=== PATIENT | male | born 1940 | race Caucasian/White ===

== ENCOUNTER 2024-07-17 21:04 | Emergency (ER) | payer MEDICARE, OTHER, SELFPAY ==
[2024-07-17 21:08] VITALS: BP 99/50; PULSE 77; RESP 18; TEMP 36.6; O2SAT 96; BMI 28.4
--- NOTE | 2024-07-17 21:09 | XRR_ITS ---
PROCEDURE INFORMATION: Exam: XR Chest Exam date and time: 07/17/2024 9:13 PM Age: 83 years old Clinical indication: Other: Syncope TECHNIQUE: Imaging protocol: Radiologic exam of the chest. Views: 1 view. COMPARISON: No relevant prior studies available. FINDINGS: Tubes, catheters and devices: Dual lead AICD device is noted on the left. Lungs: Unremarkable. No consolidation. Pleural spaces: Unremarkable. No pleural effusion. No pneumothorax. Heart/Mediastinum: The heart is enlarged. There is calcified plaque involving the aorta. Bones/joints: Unremarkable. XR/XR chest 1V portable [id number] IMPRESSION: 1. Cardiomegaly.
--- NOTE | 2024-07-17 21:09 | ECG_ITS ---
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 Measurements Intervals [place] Rate: 87 P: -4 SC: 90 QRS: 245 QRSD: 19 T: 98 QT: 337 QTc: 408 Interpretive Statements Possible atrial fibrillation with demand V paced rhythm. Right bundle branch block pattern RIGHT AXIS DEVIATION [QRS AXIS > 100] LOW QRS VOLTAGE [QRS DEFLECTION < 0.5/1.0 mV IN LIMB/CHEST LEADS] Baseline artifact. Need to repeat the study No previous ECG available for comparison Electronically Signed On 07-18-2024 17:34:10 CDT by Zane Melendez M.D. [id number]
[2024-07-17 21:21] LABS: Basophils # 0.1 10^3/uL (0.0-0.1); Eosinophils # 0.2 10^3/uL (0.0-0.8); Eosinophils % 3.7 %; Hematocrit 34.3 % (37-53); Lymphocytes # 1.9 10^3/uL (0.8-4.8); Lymphocytes % 30.2 %; Mean Corpuscular HGB Conc 33.8 g/dL (30-55); Mean Corpuscular Volume 94.8 fl (82-101); Mean Platelet Volume 9.5 fL (7.4-10.4); Monocytes # 0.7 10^3/uL (0.2-0.9); Monocytes % 10.7 %; Neutrophils # 3.32 10^3/uL (1.8-7.7); Neutrophils % 54.1 %; Nucleated Red Blood Cells % 0 %; Platelet Count 216 10^3/cmm (157-399); Red Blood Count 3.62 10^6/uL (3.85-5.65); Red Cell Distribution Width 12.6 % (12.1-15.1); White Blood Count 6.15 10^3/uL (3.29-11.43)
--- NOTE | 2024-07-17 21:28 | ED_ITS ---
HPI - Syncope 2 General: Chief Complaint: Syncope Stated Complaint: syncope Time Seen by Provider: 07/17/24 21:07 History of Present Illness: Patient presents to the ER after having a syncopal episode tonight at home. He says he fell asleep and he has no complaints but EMS says his looked over and he took his head back and fell backwards and was out for about 60 seconds but then came right to notice his normal self. Related Data Home Medications Medication Instructions Recorded Confirmed atorvastatin 10 mg tablet 10 mg PO 1XD 07/17/24 07/17/24 carvedilol 25 mg tablet 25 mg PO 1XD 07/17/24 07/17/24 digoxin 125 mcg (0.125 mg) tablet 1.25 mg PO 1XD 07/17/24 07/17/24 furosemide 40 mg tablet 40 mg PO 1XD 07/17/24 07/17/24 lisinopril 5 mg tablet 25 mg PO 1XD 07/17/24 07/17/24 mexiletine 150 mg capsule 150 mg PO 2XD 07/17/24 07/17/24 spironolactone 25 mg tablet 25 mg PO 1XD 07/17/24 07/17/24 warfarin 5 mg tablet 5 mg PO 1XD 07/17/24 07/17/24 Allergies Allergy/AdvReac Type Severity Reaction Status Date / Time No Known Allergies Allergy Verified 07/17/24 21:13 Review of Systems 2 General: Reports: 10 or more systems reviewed and unremarkable except in HPI and below Physical Exam 2 Const: COMMON NORMALS: no acute distress, average body habitus, patient oriented x3, no limitations, healthy appearing, alert and well nourished HENMT: COMMON NORMALS: normocephalic, atraumatic, hearing grossly normal bilaterally, external ears normal, Normal external nose present and moist oral mucous membranes HEAD & SCALP: normocephalic and atraumatic NOSE: Normal external nose present EXTERNAL EAR: Yes external ears normal Eye: COMMON NORMALS: Equal, round and reactive pupils present, EOMs intact bilaterally, conjunctivae normal and no scleral icterus CONJUNCTIVA: Yes conjunctivae normal PUPIL: Yes Equal, round and reactive pupils present Neck/C-Spine: COMMON NORMALS: full ROM, no lymphadenopathy, supple, no meningeal signs, no JVD and Thyroid normal THYROID: Thyroid normal Chest: COMMONS NORMALS: normal inspection of the chest and normal palpation of entire chest wall Resp: COMMON NORMALS: normal respiratory effort, No retractions, No use of accessory muscles and clear to auscultation bilaterally AUSCULTATION: clear to auscultation bilaterally Cardio: COMMON NORMALS: no JVD, regular rate, regular rhythm, S1 normal heart sound present, S2 normal heart sound present, No gallops present (Cardio), No clicks present (Cardio), No murmurs present (Cardio) and No rub (Cardio) R ATE: regular rate RHYTHM: regular rhythm HEART SOUNDS: S1 normal heart sound present and S2 normal heart sound present GI: COMMON NORMALS: Normal to inspection, nondistended, normoactive bowel sounds present, Soft to palpation, non-tender, No hepatosplenomegaly present and no masses PALPATION: Yes Soft to palpation and Yes No hepatosplenomegaly present Neuro: COMMON NORMALS: patient oriented x3 SENSORIUM/ORIENTATION: Yes alert MENINGEAL SIGNS: Yes no meningeal signs Course 2 Vital Signs: Vital signs: Vital Signs Temperature 97.9 F 07/17/24 21:08 Pulse Rate 75 07/18/24 00:22 Respiratory Rate 18 07/17/24 21:34 Blood Pressure 110/45 07/18/24 00:22 Pulse Oximetry 94 07/18/24 00:13 Oxygen Delivery Me thod Room Air 07/17/24 21:08 MDM - Syncope Medical Decision Making Patient lab work with physical exam, BUN/creatinine is slightly elevated 31.7 did not have any known prior lab work, serial troponins and EKG were benign, x- ray showed cardiomegaly, patient was bolused 2 L of normal saline orthostatic Eitel signs and a walking trial was obtained which patient did not well on patient be discharged home with diagnosis syncope. Medical Records I reviewed the patient's medical records. Lab Data I reviewed the patient's lab results. 07/17/24 20:59 07/17/24 20:59 Radiology Impressions Chest X-Ray 07/17/24 21:09 IMPRESSION: 1. Cardiomegaly. Laboratory Results WBC 6.15 10^3/uL (3.29-11.43) 07/17/24 20:59 RBC 3.62 10^6/uL (3.85-5.65) L 07/17/24 20:59 Hgb 11.60 g/dL (11.27-16.99) 07/17/24 20:59 Hct 34.3 % (37-53) L 07/17/24 20:59 MCV 94.8 fl (82-101) 07/17/24 20:59 MCH 32.0 pg (27-33) 07/17/24 20:59 MCHC 33.8 g/dL (30-55) 07/17/24 20:59 RDW 12.6 % (12.1-15.1) 07/17/24 20:59 Plt Count 216 10^3/cmm (157-399) 07/17/24 20:59 MPV 9.5 fL (7.4-10.4) 07/17/24 20:59 Neut % (Auto) 54.1 % 07/17/24 20:59 Lymph % (Auto) 30.2 % 07/17/24 20:59 [place] % (Auto) 10.7 % 07/17/24 20:59 Eos % (Auto) 3.7 % 07/17/24 20:59 Baso % (Auto) 1.0 % 07/17/24 20:59 Neut # (Auto) 3.32 10^3/uL (1.8-7.7) 07/17/24 20:59 Lymph # (Auto) 1.9 10^3/uL (0.8-4.8) 07/17/24 20:59 [place] # (Auto) 0.7 10^3/uL (0.2-0.9) 07/17/24 20:59 Eos # (Auto) 0.2 10^3/uL (0.0-0.8) 07/17/24 20:59 Baso # (Auto) 0.1 10^3/uL (0.0-0.1) 07/17/24 20:59 Nucleated RBC % (auto) 0 % 07/17/24 20:59 Nucleated RBCs # 0.0 /100WBC 07/17/24 20:59 Sodium 136 mmol/L (136-145) 07/17/24 20:59 Potassium 3.6 mmol/L (3.5-5.1) 07/17/24 20:59 Chloride 96 mmol/L (98-107) L 07/17/24 20:59 Carbon Dioxide 24 mmol/L (22-29) 07/17/24 20:59 Anion Gap 19.6 (5-19) H 07/17/24 20:59 BUN 32 mg/dL (8-23) H 07/17/24 20:59 Creatinine 1.7 mg/dL (0.7-1.2) H 07/17/24 20:59 GFR Calculation Not Reportable 07/17/24 20:59 Glucose 123 mg/dL (65-115) H 07/17/24 20:59 Calculated Osmolality 290 mOsm/kg (285-295) 07/17/24 20:59 Calcium 9.5 mg/dL (8.5-10.5) 07/17/24 20:59 Total Bilirubin 0.2 mg/dL (0.15-1.2) 07/17/24 20:59 AST 14 U/L (0-40) 07/17/24 20:59 ALT 15 U/L (0-41) 07/17/24 20:59 Alkaline Phosphatase 95 U/L (40-130) 07/17/24 20:59 Troponin T Baseline 51 ng/L (0-15) H 07/17/24 20:59 Troponin T 120 Minute 48.12 ng/L (0-15) H 07/17/24 23:05 Delta Troponin T -2.88 ABS# (0-10) L 07/17/24 23:05 Total Protein 6.7 g/dL (6.6-8.7) 07/17/24 20:59 Albumin 4.5 g/dL (3.5-5.2) 07/17/24 20:59 Globulin 2.2 g/dL (1.3-4.6) 07/17/24 20:59 XR interpretation done by ED provider, pending radiology final review Discharge Plan Discharge Patient Disposition: Home Clinical Impression: Syncope Qualifiers: Syncope type: unspecified Qualified Code(s): R55 - Syncope and collapse Condition: Stable Prescriptions: No Action furosemide 40 mg tablet 40 mg PO 1XD atorvastatin 10 mg tablet 10 mg PO 1XD warfarin 5 mg tablet 5 mg PO 1XD mexiletine 150 mg capsule 150 mg PO 2XD carvedilol 25 mg tablet 25 mg PO 1XD lisinopril 5 mg tablet 25 mg PO 1XD spironolactone 25 mg tablet 25 mg PO 1XD digoxin 125 mcg (0.125 mg) tablet 1.25 mg PO 1XD Discharge Orders: Discharge ED (Routine); Ordered 07/18/24 Ordered By: Luis Chaudhari Referrals: Hayder Kinsey MD [Family Provider] - 1 week Patient Instructions: Syncope Activity Restrictions/Additional Instructions: Thank you for choosing [facility] for your healthcare needs today. Please realize that you were seen in the emergency department and that we are providing you with an emergency medical screening exam and this may not be a complete and all exclusive of all testing and/or medical workup we may need to determine your element or severity of your illness. It is very important that you follow-up as instructed with your primary care provider or specialist for the additional evaluation and to discuss your medical treatment plan. You may return to the emergency department should you have concerns or if your condition changes or worsens in any way. 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
[2024-07-17 21:34] VITALS: BP 94/47; PULSE 88; RESP 18; O2SAT 96
[2024-07-17 21:37] LABS: Troponin(5th) Baseline 51 ng/L (0-15)
[2024-07-17 21:38] LABS: Alanine Aminotransferase 15 U/L (0-41); Albumin Level 4.5 g/dL (3.5-5.2); Alkaline Phosphatase 95 U/L (40-130); Anion Gap 19.6 (5-19); Aspartate Amino Transferase 14 U/L (0-40); Blood Urea Nitrogen 32 mg/dL (8-23); Calcium 9.5 mg/dL (8.5-10.5); Carbon Dioxide 24 mmol/L (22-29); Chloride 96 mmol/L (98-107); Creatinine Clr Calc Pharmacy 37.7779; Globulin 2.2 g/dL (1.3-4.6); Glucose 123 mg/dL (65-115); Osmolality Calculated 290 mOsm/kg (285-295); Potassium 3.6 mmol/L (3.5-5.1); Sodium 136 mmol/L (136-145); Total Bilirubin 0.2 mg/dL (0.15-1.2); Total Protein 6.7 g/dL (6.6-8.7)
[2024-07-17] MEDS: sodium chloride 0.9% 1,000 ML 999 ML IV ×2 (21:42→22:34)
[2024-07-17 22:20] VITALS: BP 82/45; PULSE 80; O2SAT 94
[2024-07-17 22:26] VITALS: BP 72/45
--- NOTE | 2024-07-17 22:34 | PC.NURSE ---
This nurse spoke with Dr Chaudhari regarding trending blood pressures. Verbal order taken from Dr Chaudhari to put in bolus of fluids.
--- NOTE | 2024-07-17 23:09 | ECG_ITS ---
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 Measurements Intervals [place] Rate: 80 P: 0 NM: 0 QRS: -82 QRSD: 219 T: 92 QT: 486 QTc: 562 Interpretive Statements ELECTRONIC VENTRICULAR PACEMAKER ABNORMAL RHYTHM ECG Compared to ECG 07/17/2024 21:13:43 Atrial-paced complex(es) or rhythm no longer present Right-axis deviation no longer present Myocardial infarct finding no longer present Electronically Signed On 07-18-2024 17:41:21 CDT by Zane Melendez M.D. [id number]
[2024-07-17 23:35] LABS: Troponin 5 2HR 48.12 ng/L (0-15)
[2024-07-17 23:37] LABS: Troponin 5 2HR Delta -2.88 ABS# (0-10)
[2024-07-18 00:13] VITALS: BP 102/50; PULSE 73; O2SAT 94
[2024-07-18 00:22] VITALS: BP 105/50; BP 110/45; BP 113/50; PULSE 73; PULSE 75; PULSE 78
--- NOTE | 2024-07-18 00:42 | PC.NURSE ---
Dr Chaudhari requested nursing staff to perform fecal occult blood test. Test result positive, Dr Chaudhari notified.
[2024-07-18 00:44] VITALS: BP 117/52; PULSE 71; RESP 22; O2SAT 94
== END 2024-07-18 00:47 | disposition home or self-care (01) ==
PROVIDERS: Emergency Provider Emergency Medicine; Family Provider Family Medicine
DX: R55 Syncope and collapse (principal); Z79.01 Long term (current) use of anticoagulants
CPT/HCPCS: 71045; 80053; 84484; 85025; 93005; 99285; J7030

== ENCOUNTER 2024-11-02 04:24 | Inpatient (IN) | payer MEDICARE, BC, SELFPAY ==
[2024-11-02] VITALS (101 sets, daily range): BP systolic 76–142; BP diastolic 44–99; PULSE 66–116; RESP 9–32; TEMP 36.4–36.9; O2SAT 86–99; BMI 28.0
--- NOTE | 2024-11-02 04:30 | XRR_ITS ---
PROCEDURE INFORMATION: Exam: XR Chest Exam date and time: 11/02/2024 5:09 AM Age: 83 years old Clinical indication: Shortness of breath and wheezing; Prior surgery; Surgery date: 6+ months; Surgery type: Defibrillator TECHNIQUE: Imaging protocol: Radiologic exam of the chest. Views: 1 view. COMPARISON: CR XR chest 1V portable [id number] 07/17/2024 9:13 PM FINDINGS: Tubes, catheters and devices: Stable left chest wall pacemaker/AICD. Lungs: Bilateral lower lobe infiltrates concerning for developing pneumonia. Pleural spaces: No pleural effusion. No pneumothorax. Heart/Mediastinum: Stable cardiomegaly. Bones/joints: No acute findings. XR/XR chest 1V portable [id number] IMPRESSION: Bilateral lower lobe infiltrates concerning for developing pneumonia.
--- NOTE | 2024-11-02 04:31 | ED_ITS ---
Documented by User: Nina Brand MD 11/04/24 10:52 HPI - SOB/Dyspnea 2 General: Chief Complaint: Shortness of Breath/Dyspnea Stated Complaint: SOB Time Seen by Provider: 11/02/24 04:26 History of Present Illness: HPI Narrative: 83-year-old male with a history of conge stive heart failure with an AICD pacemaker placement, A-fib, on digoxin and warfarin, and hypertension who presents to the emergency room with shortness of breath. He said it woke him this morning he felt quite short of breath. EMS says that when he bends over his O2 sats to go down. They had him on a couple liters of oxygen. He does not have any swelling in the legs, but feels like his abdomen may be more swollen. No fevers. No cough. No altered mental status. No focal motor deficits. No nausea or vomiting. No abdominal pain. Related Data Home Medications Medication Instructions Recorded Confirmed atorvastatin 10 mg tablet 10 mg PO DAILY 07/17/24 11/02/24 digoxin 125 mcg (0.125 mg) tablet 1.25 mg PO DAILY 07/17/24 11/02/24 mexiletine 150 mg capsule 150 mg PO BID 07/17/24 11/02/24 warfarin 5 mg tablet 5 mg PO DAILY 07/17/24 11/02/24 Previous Rx's Medication Instructions Recorded furosemide 40 mg tablet 40 mg PO QAM PRN Edema #1 tab 11/03/24 Allergies Allergy/AdvReac Type Severity Reaction Status Date / Time No Known Allergies Allergy Verified 07/17/24 21:13 Review of Systems 2 Narrative: Constitutional symptoms: Negative except as documented in HPI. Skin symptoms: Negative except as documented in HPI. Eye symptoms: Negative except as documented in HPI. ENMT symptoms: Negative except as documented in HPI. Respiratory symptoms: Negative except as documented in HPI. Cardiovascular symptoms: Negative except as documented in HPI. Gastrointestinal symptoms: Negative except as documented in HPI. Genitourinary symptoms: Negative except as documented in HPI. Musculoskeletal symptoms: Negative except as documented in HPI. Neurologic symptoms: Negative except as documented in HPI. Psychiatric symptoms: Negative except as documented in HPI. Endocrine symptoms: Negative except as documented in HPI. PFSH ED 2 PFSH: Medical History (Updated 11/04/24 @ 00:00 by CARRILLO Weston) History of coronary angiogram Hyperlipidemia Ischemic cardiomyopathy Cardiac arrhythmia Surgical History (Updated 11/02/24 @ 09:25 by Alfred Hare MD) History of cardiac defibrillator placement Family History (Updated 11/02/24 @ :25 by Alfred Hare MD) Other CAD (coronary artery disease) Social History (Updated 11/02/24 @ 09:25 by Alfred Hare MD) Smoking and tobacco/nicotine status: never used tobacco/nicotine Alcohol intake: current Alcohol intake frequency: 0-2 Drinks per Day Physical Exam 2 Narrative: EXAM NARRATIVE: General: Alert, no acute distress. Skin: Warm, dry. Head: Normocephalic, atraumatic. Neck: Supple, trachea midline. Eye: Extraocular movements are intact. Ears, nose, mouth and throat: mucosa moist. Cardiovascular: Regular, Normal peripheral perfusion. Respiratory: Lungs are clear to auscultation, respirations are non-labored, breath sounds are equal, Symmetrical chest wall expansion. Gastrointestinal: Soft, Nontender, Non distended Musculoskeletal: Normal ROM, no deformity. Neurological: Alert and oriented, No focal neurological deficit observed. Psychiatric: Cooperative, appropriate mood & affect. Course 2 Vital Signs: Vital signs: Vital Signs Temperature 98.0 F 11/03/24 08:00 Pulse Rate 72 11/03/24 08:00 Respiratory Rate 15 11/03/24 08:00 Blood Pressure 117/73 11/03/24 08:00 Pulse Oximetry 96 11/03/24 11:42 Oxygen Delivery Me thod Nasal Cannula 11/03/24 08:00 Oxygen Flow Rate 2 11/02/24 10:09 MDM - SOB/Dyspnea Medical Decision Making Differential diagnosis for patient with shortness of breath includes but is not limited to and based on the above HPI, review of systems and physical exam: Pneumonia. Bronchitis. Asthma or COPD with acute exacerbation. Acute coronary syndrome / RI. Pulmonary embolism. Anxiety. Congestive heart failure. Viral infections including influenza and Covid-19. Atrial fibrillation. Anxiety. Pleural effusion. Pneumothorax. EKG: Time 435. Rate 80. Normal sinus rhythm, No ST-T changes, no ectopy, paced rhythm, this was reviewed and interpreted by myself the emergency room physician at 4:40 AM Patient care transitioned to Dr. Li at shift change. Lab Data 11/03/24 03:41 11/03/24 03:41 Labs/Radiology: Radiology Impressions Chest X-Ray 11/02/24 04:30 IMPRESSION: Bilateral lower lobe infiltrates concerning for developing pneumonia. Chest CT 11/02/24 09:29 IMPRESSION: 1. Small RIGHT greater than LEFT pleural effusions with compressive atelectasis in the lung bases. 2. Interstitial edema in the lower lobes bilaterally 3. Cardiomegaly. 4. Biconcave compression fracture T3 with diffuse sclerosis loss approximately 30% vertebral body height. This is probably chronic but recommend correlation for upper back pain. 5. Cholelithiasis. Laboratory Results WBC 10.55 10^3/uL (3.29-11.43) 11/02/24 04:18 RBC 4.50 10^6/uL (3.85-5.65) 11/02/24 04:18 Hgb 13.70 g/dL (11.27-16.99) 11/02/24 04:18 Hct 41.7 % (37-53) 11/02/24 04:18 MCV 92.7 fl (82-101) 11/02/24 04:18 MCH 30.4 pg (27-33) 11/02/24 04:18 MCHC 32.9 g/dL (30-55) 11/02/24 04:18 RDW 13.7 % (12.1-15.1) 11/02/24 04:18 Plt Count 222 10^3/cmm (157-399) 11/02/24 04:18 MPV 10.7 fL (7.4-10.4) H 11/02/24 04:18 Neut % (Auto) 73.6 % 11/02/24 04:18 Lymph % (Auto) 15.5 % 11/02/24 04:18 [place] % (Auto) 8.6 % 11/02/24 04:18 Eos % (Auto) 1.2 % 11/02/24 04:18 Baso % (Auto) 0.8 % 11/02/24 04:18 Neut # (Auto) 7.76 10^3/uL (1.8-7.7) H 11/02/24 04:18 Lymph # (Auto) 1.6 10^3/uL (0.8-4.8) 11/02/24 04:18 [place] # (Auto) 0.9 10^3/uL (0.2-0.9) 11/02/24 04:18 Eos # (Auto) 0.1 10^3/uL (0.0-0.8) 11/02/24 04:18 Baso # (Auto) 0.1 10^3/uL (0.0-0.1) 11/02/24 04:18 Nucleated RBC % (auto) 0 % 11/02/24 04:18 Nucleated RBCs # 0.0 /100WBC 11/02/24 04:18 PT 27.50 SECONDS (12.1-14.9) H 11/02/24 04:18 INR 2.45 (0.8-1.2) H 11/02/24 04:18 APTT 40.7 SECONDS (23.9-36.7) H 11/02/24 04:18 Sodium 138 mmol/L (136-145) 11/02/24 04:18 Potassium 3.8 mmol/L (3.5-5.1) 11/02/24 04:18 Chloride 96 mmol/L (98-107) L 11/02/24 04:18 Carbon Dioxide 24 mmol/L (22-29) 11/02/24 04:18 Anion Gap 21.8 (5-19) H 11/02/24 04:18 BUN 24 mg/dL (8-23) H 11/02/24 04:18 Creatinine 1.6 mg/dL (0.7-1.2) H 11/02/24 04:18 GFR Calculation Not Reportable 11/02/24 04:18 Glucose 152 mg/dL (65-115) H 11/02/24 04:18 Calculated Osmolality 293 mOsm/kg (285-295) 11/02/24 04:18 Lactic Acid 2.7 mmol/L (0.5-2.2) H 11/02/24 04:18 Lactic Acid (Sepsis) 1.9 mmol/L (0.5-2.2) 11/02/24 06:57 Calcium 9.2 mg/dL (8.5-10.5) 11/02/24 04:18 Magnesium 2.1 mg/dL (1.7-2.3) 11/02/24 04:18 Total Bilirubin 0.9 mg/dL (0.15-1.2) 11/02/24 04:18 AST 14 U/L (0-40) 11/02/24 04:18 ALT 19 U/L (0-41) 11/02/24 04:18 Alkaline Phosphatase 110 U/L (40-130) 11/02/24 04:18 Troponin T Baseline 38 ng/L (0-15) H 11/02/24 04:18 Troponin T 120 Minute 36.90 ng/L (0-15) H 11/02/24 06:57 Delta Troponin T -1.10 ABS# (0-10) L 11/02/24 06:57 C-Reactive Protein 40.1 mg/L (0.0-4.9) H 11/02/24 06:57 NT-Pro-B Natriuret Pep 3720 pg/mL (0-450) H 11/02/24 04:18 Total Protein 6.6 g/dL (6.6-8.7) 11/02/24 04:18 Albumin 4.4 g/dL (3.5-5.2) 11/02/24 04:18 Globulin 2.2 g/dL (1.3-4.6) 11/02/24 04:18 Procalcitonin 0.07 ng/mL (0-0.5) 11/02/24 06:57 TSH 2.68 uIU/mL (0.27-4.20) 11/02/24 04:18 Urine Color Yellow (Yellow) 11/02/24 09:02 Urine Appearance Clear (CLEAR) 11/02/24 09:02 Urine pH 5.5 (5-7) 11/02/24 09:02 Ur Specific [place] 1.014 (1.005-1.030) 11/02/24 09:02 Urine Protein Negative (Negative) 11/02/24 09:02 Urine Glucose (UA) Negative (Normal) 11/02/24 09:02 Urine Ketones Negative (Negative) 11/02/24 09:02 Urine Blood Negative (Negative) 11/02/24 09:02 Urine Nitrate Negative (Negative) 11/02/24 09:02 Urine Bilirubin Negative (Negative) 11/02/24 09:02 Urine Urobilinogen 1.0 mg/dL (Negative) 11/02/24 09:02 Ur Leukocyte Esterase Negative (Negative) 11/02/24 09:02 Urine RBC 0-2 /hpf (0-2) 11/02/24 09:02 Urine WBC 0-5 /hpf (0-5) 11/02/24 09:02 Ur Squamous Epith Cells 0-5 /hpf (0-5) 11/02/24 09:02 Amorphous Sediment Not Reportable 11/02/24 09:02 Urine Bacteria None seen /hpf (NONE) 11/02/24 09:02 Hyaline Casts 9.07 /lpf 11/02/24 09:02 Digoxin 0.9 ng/mL (0.6-1.2) 11/02/24 06:52 Coronavirus (PCR) Negative (Negative) 11/02/24 04:18 Influenza A (PCR) Negative (Negative) 11/02/24 04:18 Influenza Type B (PCR) Negative (Negative) 11/02/24 04:18 RSV (PCR) Negative (Negative) 11/02/24 04:18 Discharge Plan Discharge Patient Disposition: Admitted As Inpatient Admit Provider: Alfred Hare Clinical Impression: Hypotension, Chronic kidney disease, Ischemic cardiomyopathy, Community acquired pneumonia Condition: Stable Discharge Diet: Cardiac Discharge Activity: Limit activity as instructed Sign Out Sign Out Data: Patient Sign Out occurred on 11/02/24 at 05:53. Patient's care was discussed, and care was transferred from Nina Brand MD to Ran Li DO. Coding Level of Care Code ED Lead Oracle Developer for Chg Fwd Documented by User: Ran Li DO 11/02/24 12:51 HPI - SOB/Dyspnea 2 General: Chief Complaint: Shortness of Breath/Dyspnea Stated Complaint: SOB Time Seen by Provider: 11/02/24 04:26 Related Data Home Medications Medication Instructions Recorded Confirmed atorvastatin 10 mg tablet 10 mg PO DAILY 07/17/24 11/02/24 digoxin 125 mcg (0.125 mg) tablet 1.25 mg PO DAILY 07/17/24 11/02/24 mexiletine 150 mg capsule 150 mg PO BID 07/17/24 11/02/24 warfarin 5 mg tablet 5 mg PO DAILY 07/17/24 11/02/24 Previous Rx's Medication Instructions Recorded furosemide 40 mg tablet 40 mg PO QAM PRN Edema #1 tab 11/03/24 Allergies Allergy/AdvReac Type Severity Reaction Status Date / Time No Known Allergies Allergy Verified 07/17/24 21:13 [facility] ED 2 PFS: Medical History (Updated 11/04/24 @ 00:00 by CARRILLO Weston) History of coronary angiogram Hyperlipidemia Ischemic cardiomyopathy Cardiac arrhythmia Surgical History (Updated 11/02/24 @ 09:25 by Alfred Hare MD) History of cardiac defibrillator placement Family History (Updated 11/02/24 @ :25 by Alfred Hare MD) Other CAD (coronary artery disease) Social History (Updated 11/02/24 @ :25 by Alfred Hare MD) Smoking and tobacco/nicotine status: never used tobacco/nicotine Alcohol intake: current Alcohol intake frequency: 0-2 Drinks per Day Course 2 Vital Signs: Vital signs: Vital Signs Temperature 98.0 F 11/03/24 08:00 Pulse Rate 72 11/03/24 08:00 Respiratory Rate 15 11/03/24 08:00 Blood Pressure 117/73 11/03/24 08:00 Pulse Oximetry 96 11/03/24 11:42 Oxygen Delivery Me thod Nasal Cannula 11/03/24 08:00 Oxygen Flow Rate 2 11/02/24 10:09 MDM - SOB/Dyspnea Medical Decision Making Differential diagnosis for patient with shortness of breath includes but is not limited to and based on the above HPI, review of systems and physical exam: Pneumonia. Bronchitis. Asthma or COPD with acute exacerbation. Acute coronary syndrome / RI. Pulmonary embolism. Anxiety. Congestive heart failure. Viral infections including influenza and Covid-19. Atrial fibrillation. Anxiety. Pleural effusion. Pneumothorax. EKG: Time 435. Rate 80. Normal sinus rhythm, No ST-T changes, no ectopy, paced rhythm, this was reviewed and interpreted by myself the emergency room physician at 4:40 AM Patient care transitioned to Dr. Li at shift change. Care assumed at change of shift. Patient is hypotensive. Patient has known history of cardiomyopathy has an ICD in place. He was given IV fluids for hypotension very small amount due to concern for heart failure. He also has some underlying pneumonia. Reviewed with hospitalist. Will admit IV antibiotics initiated. Will get old records from [place] where he usually gets his care. Dig level 0.9. Medical Records I reviewed the patient's medical records. Old records requested from [place] Lab Data I reviewed the patient's lab results. 11/03/24 03:41 11/03/24 03:41 Labs/Radiology: Radiology Impressions Chest X-Ray 11/02/24 04:30 IMPRESSION: Bilateral lower lobe infiltrates concerning for developing pneumonia. Chest CT 11/02/24 09:29 IMPRESSION: 1. Small RIGHT greater than LEFT pleural effusions with compressive atelectasis in the lung bases. 2. Interstitial edema in the lower lobes bilaterally 3. Cardiomegaly. 4. Biconcave compression fracture T3 with diffuse sclerosis loss approximately 30% vertebral body height. This is probably chronic but recommend correlation for upper back pain. 5. Cholelithiasis. Laboratory Results WBC 10.55 10^3/uL (3.29-11.43) 11/02/24 04:18 RBC 4.50 10^6/uL (3.85-5.65) 11/02/24 04:18 Hgb 13.70 g/dL (11.27-16.99) 11/02/24 04:18 Hct 41.7 % (37-53) 11/02/24 04:18 MCV 92.7 fl (82-101) 11/02/24 04:18 MCH 30.4 pg (27-33) 11/02/24 04:18 MCHC 32.9 g/dL (30-55) 11/02/24 04:18 RDW 13.7 % (12.1-15.1) 11/02/24 04:18 Plt Count 222 10^3/cmm (157-399) 11/02/24 04:18 MPV 10.7 fL (7.4-10.4) H 11/02/24 04:18 Neut % (Auto) 73.6 % 11/02/24 04:18 Lymph % (Auto) 15.5 % 11/02/24 04:18 [place] % (Auto) 8.6 % 11/02/24 04:18 Eos % (Auto) 1.2 % 11/02/24 04:18 Baso % (Auto) 0.8 % 11/02/24 04:18 Neut # (Auto) 7.76 10^3/uL (1.8-7.7) H 11/02/24 04:18 Lymph # (Auto) 1.6 10^3/uL (0.8-4.8) 11/02/24 04:18 [place] # (Auto) 0.9 10^3/uL (0.2-0.9) 11/02/24 04:18 Eos # (Auto) 0.1 10^3/uL (0.0-0.8) 11/02/24 04:18 Baso # (Auto) 0.1 10^3/uL (0.0-0.1) 11/02/24 04:18 Nucleated RBC % (auto) 0 % 11/02/24 04:18 Nucleated RBCs # 0.0 /100WBC 11/02/24 04:18 PT 27.50 SECONDS (12.1-14.9) H 11/02/24 04:18 INR 2.45 (0.8-1.2) H 11/02/24 04:18 APTT 40.7 SECONDS (23.9-36.7) H 11/02/24 04:18 Sodium 138 mmol/L (136-145) 11/02/24 04:18 Potassium 3.8 mmol/L (3.5-5.1) 11/02/24 04:18 Chloride 96 mmol/L (98-107) L 11/02/24 04:18 Carbon Dioxide 24 mmol/L (22-29) 11/02/24 04:18 Anion Gap 21.8 (5-19) H 11/02/24 04:18 BUN 24 mg/dL (8-23) H 11/02/24 04:18 Creatinine 1.6 mg/dL (0.7-1.2) H 11/02/24 04:18 GFR Calculation Not Reportable 11/02/24 04:18 Glucose 152 mg/dL (65-115) H 11/02/24 04:18 Calculated Osmolality 293 mOsm/kg (285-295) 11/02/24 04:18 Lactic Acid 2.7 mmol/L (0.5-2.2) H 11/02/24 04:18 Lactic Acid (Sepsis) 1.9 mmol/L (0.5-2.2) 11/02/24 06:57 Calcium 9.2 mg/dL (8.5-10.5) 11/02/24 04:18 Magnesium 2.1 mg/dL (1.7-2.3) 11/02/24 04:18 Total Bilirubin 0.9 mg/dL (0.15-1.2) 11/02/24 04:18 AST 14 U/L (0-40) 11/02/24 04:18 ALT 19 U/L (0-41) 11/02/24 04:18 Alkaline Phosphatase 110 U/L (40-130) 11/02/24 04:18 Troponin T Baseline 38 ng/L (0-15) H 11/02/24 04:18 Troponin T 120 Minute 36.90 ng/L (0-15) H 11/02/24 06:57 Delta Troponin T -1.10 ABS# (0-10) L 11/02/24 06:57 C-Reactive Protein 40.1 mg/L (0.0-4.9) H 11/02/24 06:57 NT-Pro-B Natriuret Pep 3720 pg/mL (0-450) H 11/02/24 04:18 Total Protein 6.6 g/dL (6.6-8.7) 11/02/24 04:18 Albumin 4.4 g/dL (3.5-5.2) 11/02/24 04:18 Globulin 2.2 g/dL (1.3-4.6) 11/02/24 04:18 Procalcitonin 0.07 ng/mL (0-0.5) 11/02/24 06:57 TSH 2.68 uIU/mL (0.27-4.20) 11/02/24 04:18 Urine Color Yellow (Yellow) 11/02/24 09:02 Urine Appearance Clear (CLEAR) 11/02/24 09:02 Urine pH 5.5 (5-7) 11/02/24 09:02 Ur Specific [place] 1.014 (1.005-1.030) 11/02/24 09:02 Urine Protein Negative (Negative) 11/02/24 09:02 Urine Glucose (UA) Negative (Normal) 11/02/24 09:02 Urine Ketones Negative (Negative) 11/02/24 09:02 Urine Blood Negative (Negative) 11/02/24 09:02 Urine Nitrate Negative (Negative) 11/02/24 09:02 Urine Bilirubin Negative (Negative) 11/02/24 09:02 Urine Urobilinogen 1.0 mg/dL (Negative) 11/02/24 09:02 Ur Leukocyte Esterase Negative (Negative) 11/02/24 09:02 Urine RBC 0-2 /hpf (0-2) 11/02/24 09:02 Urine WBC 0-5 /hpf (0-5) 11/02/24 09:02 Ur Squamous Epith Cells 0-5 /hpf (0-5) 11/02/24 09:02 Amorphous Sediment Not Reportable 11/02/24 09:02 Urine Bacteria None seen /hpf (NONE) 11/02/24 09:02 Hyaline Casts 9.07 /lpf 11/02/24 09:02 Digoxin 0.9 ng/mL (0.6-1.2) 11/02/24 06:52 Coronavirus (PCR) Negative (Negative) 11/02/24 04:18 Influenza A (PCR) Negative (Negative) 11/02/24 04:18 Influenza Type B (PCR) Negative (Negative) 11/02/24 04:18 RSV (PCR) Negative (Negative) 11/02/24 04:18 All radiology interpretation(s) finalized by discharge Discharge Plan Discharge Patient Disposition: Admitted As Inpatient Admit Provider: Alfred Hare Clinical Impression: Hypotension, Chronic kidney disease, Ischemic cardiomyopathy, Community acquired pneumonia Condition: Stable Discharge Diet: Cardiac Discharge Activity: Limit activity as instructed Sign Out Sign Out Data: Patient Sign Out occurred on 11/02/24 at 05:53. Patient's care was discussed, and care was transferred from Nina Brand MD to Ran Li DO. Coding Level of Care Code ED Lead Oracle Developer for Idalia Pabon
--- NOTE | 2024-11-02 04:31 | ECG_ITS ---
[facility] Test Date: 2024-11-02 Pat Name: Al Sarmiento Department: Room: Gender: Male Ekg/Ecg Technician: : 1940 Requested By: Nina Gibbons Order Number: [id number] Alyssa MD: Zane Melendez M.D. Measurements Intervals [place] Rate: 80 P: 30 MD: 82 QRS: 126 QRSD: 97 T: -41 QT: 395 QTc: 456 Interpretive Statements ELECTRONIC ventricular PACEMAKER 100% v paced rhythm Further interpretation is not possible Electronically Signed On 11-02-2024 19:51:12 [employer] H[employer]RIC[employer]UNTER by Zane Melendez M.D. [id number]
[2024-11-02 04:50] LABS: Basophils # 0.1 10^3/uL (0.0-0.1); Basophils % 0.8 %; Eosinophils # 0.1 10^3/uL (0.0-0.8); Eosinophils % 1.2 %; Hematocrit 41.7 % (37-53); Lymphocytes # 1.6 10^3/uL (0.8-4.8); Lymphocytes % 15.5 %; Mean Corpuscular HGB Conc 32.9 g/dL (30-55); Mean Corpuscular Hemoglobin 30.4 pg (27-33); Mean Corpuscular Volume 92.7 fl (82-101); Mean Platelet Volume 10.7 fL (7.4-10.4); Monocytes # 0.9 10^3/uL (0.2-0.9); Monocytes % 8.6 %; Neutrophils # 7.76 10^3/uL (1.8-7.7); Neutrophils % 73.6 %; Nucleated Red Blood Cells % 0 %; Platelet Count 222 10^3/cmm (157-399); Red Cell Distribution Width 13.7 % (12.1-15.1); White Blood Count 10.55 10^3/uL (3.29-11.43)
[2024-11-02 05:04] LABS: INR 2.45 (0.8-1.2)
[2024-11-02 05:05] LABS: Partial Thromboplastin Time 40.7 SECONDS (23.9-36.7)
[2024-11-02 05:10] LABS: Troponin(5th) Baseline 38 ng/L (0-15)
[2024-11-02 05:11] LABS: Lactic Sepsis W/Reflex 2.7 mmol/L (0.5-2.2)
[2024-11-02 05:16] LABS: Alanine Aminotransferase 19 U/L (0-41); Albumin Level 4.4 g/dL (3.5-5.2); Alkaline Phosphatase 110 U/L (40-130); Anion Gap 21.8 (5-19); Aspartate Amino Transferase 14 U/L (0-40); Blood Urea Nitrogen 24 mg/dL (8-23); Calcium 9.2 mg/dL (8.5-10.5); Carbon Dioxide 24 mmol/L (22-29); Chloride 96 mmol/L (98-107); Globulin 2.2 g/dL (1.3-4.6); Glucose 152 mg/dL (65-115); Osmolality Calculated 293 mOsm/kg (285-295); Potassium 3.8 mmol/L (3.5-5.1); Sodium 138 mmol/L (136-145); Total Bilirubin 0.9 mg/dL (0.15-1.2); Total Protein 6.6 g/dL (6.6-8.7)
[2024-11-02 05:22] LABS: NT Pro B Type Natriuretic Pept 3720 pg/mL (0-450)
[2024-11-02 06:36] LABS: Reflex Lactate Order REFLEX LACTIC ORDERD
--- NOTE | 2024-11-02 07:20 | ECG_ITS ---
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 Measurements Intervals [place] Rate: 80 P: 60 [place]: 87 QRS: 258 QRSD: 78 T: 109 QT: 384 QTc: 444 Interpretive Statements ELECTRONIC Ventricular PACEMAKER LOW QRS VOLTAGE [QRS DEFLECTION < 0.5/1.0 mV IN LIMB/CHEST LEADS] ANTEROLATERAL MYOCARDIAL INFARCTION , PROBABLY RECENT [40+ ms Q WAVE IN I/aVL/V3-V6] MARKED ST ELEVATION, CONSIDER INFERIOR INJURY [MARKED ST ELEVATION W/O NORMALLY INFLECTED T-WAVE IN II/aVF] ACUTE NV Compared to ECG 11/02/2024 04:35:08 Right-axis deviation no longer present Myocardial infarct finding still present ST (T wave) deviation still present Electronically Signed On 11-02-2024 19:55:20 AQUATIC INSTRUCTOR by Zane Melendez M.D. [id number]
[2024-11-02 07:27] LABS: C Reactive Protein 40.1 mg/L (0.0-4.9)
[2024-11-02 07:29] LABS: Covid PCR NEGATIVE (Negative); Influenza A NEGATIVE (Negative); Influenza B NEGATIVE (Negative); Respiratory Syncytial Virus Ce NEGATIVE (Negative)
[2024-11-02 07:32] LABS: Lactic Acid level (Lactate) 1.9 mmol/L (0.5-2.2)
[2024-11-02] MEDS: piperacillin-tazobactam 3.375 GM in sodium chloride 0.9% (plus) 50 ML IV (07:32)
[2024-11-02 07:34] LABS: Procalcitonin 0.07 ng/mL (0-0.5)
--- NOTE | 2024-11-02 07:40 | USCV_ITS ---
Al Sarmiento Age: 83 Gender: M : 1940 Exam Date: 11/02/2024 09:04 Ordering Phys: Ran Li DO Technologist: Slade Mann [place]am [place] [facility] [place]ication: chf BP: 94 / 53 HR: 85 Rhythm: Sinus Technical Quality: Adequate MEASUREMENTS (Male / Female) Normal Values 2D ECHO LV Diastolic Diameter PLAX 5.6 cm 4.2 - 5.9 / 3.9 - 5.3 cm IVS Diastolic Thickness 1.5 cm 0.6 - 1.0 / 0.6 - 0.9 cm IVS Systolic Thickness 1.6 cm LVPW Diastolic Thickness 1.6 cm 0.6 - 1.0 / 0.6 - 0.9 cm LVPW Systolic Thickness 2.6 cm LVOT Diameter 2.1 cm LV Ejection Fraction 2D Teich 44.2 % LV Ejection Fraction MOD 4C 60.2 % LV Ejection Fraction MOD 2C 32.8 % LV Ejection Fraction 2C AL 34.9 % LA Diameter 5.1 cm RA Systolic Volume 4C AL 88.9 ml RA Systolic Volume 4C MOD 90.8 ml LA Sys Volume AL 123.8 cm cubed LA Sys Volume Index AL 59.7 cm cubed/m squared Aorta at Sinotubular Diameter 2.0 cm IVC Diameter 2.0 cm M-MODE LA Ao Ratio MM 2.1 AV Cusp Separation MM 1.4 cm DOPPLER AV Peak Velocity 143.0 cm/s LVOT Peak Velocity 73.0 cm/s AV Area Cont Eq vti 1.9 cm squared AV Area Cont Eq pk 1.7 cm squared MV Peak Velocity 360.3 cm/s MV Area PHT 5.5 cm squared Mitral E to A Ratio 2.8 TV Peak Velocity 172.9 cm/s TR Peak Velocity 230.0 cm/s TR Peak Gradient 21.2 mmHg TR Mean Velocity 225.0 cm/s TR Mean Gradient 23.0 mmHg TR Velocity Time Integral 76.9 cm PV Peak Velocity 78.0 cm/s RV Ejection Time 0.2 s FINDINGS Left Ventricle Normal LV size with y diminished ejection fraction of around 45%. 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 Right Ventricle The right ventricle is normal in size and function. Right Atrium Mildly increased right atrial size. Left Atrium Moderately increased left atrial size. Mitral Valve Moderate-severe mitral valve regurgitation. Aortic Valve Thickened aortic valve. Tricuspid Valve Trace tricuspid valve regurgitation. Estimated pulmonary artery peak systolic pressure 26 mmHg Pulmonic Valve Pulmonic valve not well visualized. Pericardium Normal pericardium without effusion. Aorta Normal ascending aorta dimension. IVC Normal inferior vena cava. CONCLUSIONS Normal LV size with y diminished ejection fraction of around 45%. Moderately increased left atrial size. Moderate-severe mitral valve regurgitation. Mildly increased right atrial size. Trace tricuspid valve regurgitation. Estimated pulmonary artery peak systolic pressure 26 mmHg Thickened aortic valve. 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 There is no pericardial effusion. There are no intracardiac masses. No similar previous studies are available for comparison Dr Zane Melendez MD [facility] (Electronically Signed) Final Date: 02 November 2024 12:00 S
[2024-11-02 08:04] LABS: Digoxin 0.9 ng/mL (0.6-1.2)
[2024-11-02] MEDS: sodium chloride 0.9% 500 ML 999 ML IV (08:07)
[2024-11-02] MEDS: norepinephrine 4 MG/250 ML BAG 30 MG IV (08:10)
--- NOTE | 2024-11-02 09:22 | PM.HP ---
Providers/Chief Complaint Admitting Physician: Alfred Hare MD Primary Care Provider: Kathrin Zuniga MD Chief Complaint: SOB History of Present Illness Al Sarmiento is a 83 year old male who usually receives his cardiac care at [facility] who presents with low oxygen level. He reports in the middle of the night, around 3 AM he woke up very short of breath. He noticed his oxygen level was 82%. He did not recently had any cough, fever, or chest pain. He reports since then he has felt intermittent shortness of breath that is been significant and. He believes he had an angiogram 6 months ago, at [facility] and no intervention was performed. He has a history of cardiomyopathy, according to documentation may be ischemic, with an EF of 40% and moderate mitral regurgitation in November 2023 by echo. Currently he denies any chest pain, and feels excellent. Blood pressure was significantly low in the ER and he was started on norepinephrine, of which he is on 10 mcg. Systolic there was in the mid 70s. There has been no change in his medications recently. In the emergency department he received some IV fluid, some Zosyn empirically, and some norepinephrine. Review of Systems General: Reports: 10 or more systems reviewed and unremarkable except in HPI and below Card: Denies: chest pain Resp: Reports: dyspnea GI: Denies: hematochezia or melena Medications/Allergies Home Medications Medication Instructions Recorded Confirmed Last Taken Type atorvastatin 10 mg tablet 10 mg PO DAILY 07/17/24 11/02/24 11/01/24 History digoxin 125 mcg (0.125 mg) tablet 1.25 mg PO DAILY 07/17/24 11/02/24 11/01/24 History furosemide 40 mg tablet 40 mg PO QAM 07/17/24 11/02/24 11/02/24 History lisinopril 5 mg tablet 5 mg PO DAILY 07/17/24 11/02/24 11/01/24 History mexiletine 150 mg capsule 150 mg PO BID 07/17/24 11/02/24 11/01/24 History spironolactone 25 mg tablet 25 mg PO DAILY 07/17/24 11/02/24 11/01/24 History warfarin 5 mg tablet 5 mg PO DAILY 07/17/24 11/02/24 11/01/24 History carvedilol 12.5 mg tablet 12.5 mg PO BID 11/02/24 11/02/24 11/01/24 History Allergies Allergy/AdvReac Type Severity Reaction Status Date / Time No Known Allergies Allergy Verified 07/17/24 21:13 PFSH Acute PFSH: Medical History (Updated 11/02/24 @ 09:31 by Alfred Hare MD) History of coronary angiogram Hyperlipidemia Ischemic cardiomyopathy Cardiac arrhythmia Surgical History (Updated 11/02/24 @ 09:25 by Alfred Hare MD) History of cardiac defibrillator placement Family History (Updated 11/02/24 @ 09:25 by Alfred Hare MD) Other CAD (coronary artery disease) Social History (Updated 11/02/24 @ 09:25 by Alfred Hare MD) Smoking and tobacco/nicotine status: never used tobacco/nicotine Alcohol intake: current Alcohol intake frequency: 0-2 Drinks per Day Vitals/I&O/Wt Last Vital Signs Temp 98 F 11/02/24 04:45 Pulse 93 11/02/24 07:45 Resp 22 H 11/02/24 06:24 BP 94/53 11/02/24 07:45 Pulse Ox 93 11/02/24 07:45 O2 Del Method Room Air 11/02/24 07:45 O2 Flow Rate 1 11/02/24 05:30 11/01/24 11/02/24 11/02/24 22:59 06:59 14:59 Intake Total 0 / 0 557.5 / 557.5 Balance 0 / 0 557.5 / 557.5 Weight last 48 hrs Weight 85.729 kg Physical Exam Narrative: General Exam is a white male, no distress, reporting he feels better currently HEENT: Atraumatic normocephalic. Oropharynx is clear Neck is supple no lymphadenopathy thyromegaly Cardiovascular regular in rhythm with a 3/6 systolic murmur Lungs clear but with diminished breath sounds at the bases Abdomen is soft nontender. Positive bowel sounds exam is deferred Extremities no cyanosis clubbing edema, cap refill brisk Skin no rash Neuro no obvious focal deficits Data 11/02/24 04:18 11/02/24 04:18 Other Labs: INR is 2.45 LFTs are normal Lactic acid 2.7 and repeat 1.9 Troponin 38, repeat 37 CRP 40 BNP 3720 Procalcitonin 0.07 Digoxin level 0.9 Coronavirus, influenza, RSV negative Chest x-ray demonstrates some bilateral lower lobe infiltrates. Cardiac device is noted. On my review I am concerned it appears he has a little bit of heart failure. Cannot completely rule out layering effusions. Blood cultures were obtained EKG demonstrates a paced ventricular rhythm. Micro: Microbiology 11/02/24 06:57 Blood Culture - Preliminary Blood SPECIMEN COLLECTED 11/02/24 06:57 Blood Culture - Preliminary Blood SPECIMEN COLLECTED A&P Assessment and plan (1) Hypotension: Patient presents significantly hypotensive, with no obvious infection, and I suspect significant cardiac dysfunction and low blood pressure associated with his current medications. His last ejection fraction 1 year ago was approximately 40%. Check urinalysis to exclude infection there Hydration was given in the emergency department Wean pressors as tolerated, no further hydration Hold medication used for hypertension, hold digoxin in face of renal dysfunction Echocardiogram (2) Dyspnea: Check CT chest. This will give us some further information regarding his infiltrates. I suspect this is pulmonary edema and not pneumonia. Cannot completely exclude layering effusions. (3) Ischemic cardiomyopathy: Patient with history of ischemic cardiomyopathy Request records from [facility] Echocardiogram (4) Chronic kidney disease: Avoid renal toxic medication Hold blood pressure medication Hold digoxin Bladder scan now and as needed (5) Cardiac arrhythmia: Hold patient's Coumadin INR tomorrow Consider full dose anticoagulation when INR is less than 2 Telemetry Request records Check TSH, magnesium Echocardiogram Plan Other medical problems as listed in past medical history Currently full code SCDs for DVT prophylaxis. On Coumadin with therapeutic INR, no pharmacologic for now until INR less than 2. Attestations Medical Necessity Statement*: Will require greater than 2 midnight stay for evaluation and treatment of hypotension with significant cardiac dysfunction. Critical Care Time: The high probability of a clinically significant, sudden or life threatening deterioration of the patient's [vascular, cardiac, renal] system(s) required my full and direct attention, intervention and personal management. The critical care time is as shown. This time is in addition to time spent performing any reported procedures but includes the following: [x] Data and vital sign review and interpretation [x] Patient assessment, examination and intervention [x] Documentation [x] Medication orders and management Critical Care Time (min): 54 Coding Level of Care Code Critical Care >/= 30 minutes Critical care time (in minutes): 54 The high probability of a clinically significant, sudden or life threatening deterioration, as referenced in this documentation, required my full and direct attention, intervention and personal management. The critical care time shown is in addition to time spent performing any reported separately billable procedures and includes the following: [x] Data and vital sign review and interpretation [x] Patient assessment, examination and intervention [x] Medication orders and management [x] Patient/Family updates as able [x] Care Coordination and Documentation. Diagnoses Hypotension I95.9 Dyspnea R06.00 Ischemic cardiomyopathy I25.5 Chronic kidney disease N18.9 Cardiac arrhythmia I49.9
--- NOTE | 2024-11-02 09:29 | CT_ITS ---
WS: [id number] CT CHEST TECHNIQUE: Noncontrast CT of the chest with coronal and sagittal reformatted images. CLINICAL INFORMATION: dyspnea COMPARISON: None. DLP: 585.[address] scans at [facility] use at least one of these dose optimization techniques: automated e xposure control; mA and/or kV adjustment per patient size (includes targeted exams where dose is matc hed to clinical indication); or iterative reconstruction. FINDINGS: Cardiomegaly. No mediastinal or hilar lymphadenopathy. No axillary lymphadenopathy. Mild thoracic kyp hosis. Biconcave compression with anterior wedging at T3. Associated sclerosis. 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 Recommend correlation with upper thoracic pain. Small bilateral pleural effusions RIGHT greater than LEFT. Interstitial edema in the parahilar region s and lower lobes likely due to edema. Slight compressive atelectasis in the lung bases. Aortic calcification. Dense coronary calcification. Normal caliber descending thoracic aorta. Small e sophageal hernia. Cholelithiasis. Adrenal glands are normal. Splenic artery calcification. Slightly ectatic upper abdominal aorta measu ring 2.[address]/CT chest wo con [id number] IMPRESSION: 1. Small RIGHT greater than LEFT pleural effusions with compressive atelectasi s in the lung bases. 2. Interstitial edema in the lower lobes bilaterally 3. Cardiomegaly. 4. Biconcave compression fracture T3 with diffuse sclerosis loss approximately 30% vertebral body height. This is probably chronic but recommend correlation for upper back pain. 5. Cholelithiasis.
[2024-11-02 10:21] LABS: Bilirubin Urine Negative (Negative); Blood Urine Negative (Negative); Glucose Urine UA Negative (Normal); Ketones Urine Negative (Negative); Leukocyte Esterase Urine Negative (Negative); Nitrate Urine Negative (Negative); Protein Urine Negative (Negative); Specific Gravity, Urine 1.014 (1.005-1.030); Urine Appearance Clear (CLEAR); Urine Color Yellow (Yellow); pH Urine 5.5 (5-7)
[2024-11-02 10:25] LABS: Add Urine Microscopic? YES; Bacteria Urine None Seen /hpf; Hyaline Casts Urine 9.07 /lpf; RBC Urine 0-2 /hpf (0-2); Squamous Epithelial Cell Urine 0-5 /hpf (0-5); WBC Urine 0-5 /hpf (0-5)
[2024-11-02 10:31] LABS: Magnesium 2.1 mg/dL (1.7-2.3); Thyroid Stimulating Hormone 2.68 uIU/mL (0.27-4.20)
--- NOTE | 2024-11-02 10:31 | ECG_ITS ---
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 Measurements Intervals [place] Rate: 84 P: 0 ND: 0 QRS: -72 QRSD: 202 T: 107 QT: 478 QTc: 566 Interpretive Statements ELECTRONIC VENTRICULAR PACEMAKER ABNORMAL RHYTHM ECG Compared to ECG 11/02/2024 07:20:15 Atrial-paced complex(es) or rhythm no longer present Myocardial infarct finding no longer present ST (T wave) deviation no longer present Electronically Signed On 11-02-2024 19:55:25 CHIPPER OPERATOR by Zane Melendez M.D. [email or web address]
[2024-11-02] MEDS: pantoprazole DR 40 mg Tablet PO (10:32)
[2024-11-02 10:35] LABS: UA Slide Review UA Slide Review Perf
[2024-11-02] MEDS: FUROsemide 10 mg/mL SDV 4mL 40 MG IVP (14:25)
--- NOTE | 2024-11-02 17:03 | PC.NURSE ---
Transfer Note Patient transferred to CSU room 111-2 from ICU via wheelchair. Handoff report given to THERESA Cruz. Patient oriented to environment and equipment. Covering service notified. Orders reviewed and will continue to monitor. Family notified. Upon transfer patient is alert/oriented x4, no wounds or skin issues noted at this time. All patient belongings transferred with patient and placed at bedside.
[2024-11-03] VITALS: BP 117/67; PULSE 79; RESP 18; TEMP 36.7; O2SAT 96
[2024-11-03 03:51] LABS: Basophils # 0.1 10^3/uL (0.0-0.1); Basophils % 0.8 %; Eosinophils # 0.2 10^3/uL (0.0-0.8); Eosinophils % 2.4 %; Hematocrit 35.7 % (37-53); Lymphocytes # 1.4 10^3/uL (0.8-4.8); Lymphocytes % 19.8 %; Mean Corpuscular HGB Conc 32.8 g/dL (30-55); Mean Corpuscular Hemoglobin 30.6 pg (27-33); Mean Corpuscular Volume 93.5 fl (82-101); Mean Platelet Volume 10.2 fL (7.4-10.4); Monocytes # 0.8 10^3/uL (0.2-0.9); Monocytes % 10.7 %; Neutrophils # 4.68 10^3/uL (1.8-7.7); Neutrophils % 65.9 %; Nucleated Red Blood Cells % 0 %; Platelet Count 175 10^3/cmm (157-399); Red Blood Count 3.82 10^6/uL (3.85-5.65); Red Cell Distribution Width 13.8 % (12.1-15.1); White Blood Count 7.11 10^3/uL (3.29-11.43)
[2024-11-03 04:00] VITALS: BP 132/68; PULSE 73; RESP 15; TEMP 36.6; O2SAT 98
[2024-11-03 04:06] LABS: INR 2.22 (0.8-1.2)
[2024-11-03 04:11] LABS: Alanine Aminotransferase 13 U/L (0-41); Albumin Level 3.7 g/dL (3.5-5.2); Alkaline Phosphatase 84 U/L (40-130); Anion Gap 14.7 (5-19); Aspartate Amino Transferase 11 U/L (0-40); Blood Urea Nitrogen 23 mg/dL (8-23); Calcium 9.1 mg/dL (8.5-10.5); Carbon Dioxide 27 mmol/L (22-29); Chloride 103 mmol/L (98-107); Creatinine Clr Calc Pharmacy 45.6122; Globulin 2.3 g/dL (1.3-4.6); Glucose 133 mg/dL (65-115); Magnesium 1.9 mg/dL (1.7-2.3); Osmolality Calculated 298 mOsm/kg (285-295); Potassium 3.7 mmol/L (3.5-5.1); Sodium 141 mmol/L (136-145); Total Bilirubin 0.6 mg/dL (0.15-1.2)
[2024-11-03 06:00] VITALS: PULSE 75
[2024-11-03] MEDS: pantoprazole DR 40 mg Tablet PO (07:18)
[2024-11-03 08:00] VITALS: BP 117/73; PULSE 72; RESP 15; TEMP 36.7; O2SAT 93
--- NOTE | 2024-11-03 11:07 | P.DS_ITS ---
Discharge Providers Date of Admission: 11/02/24 09:02 Date of Discharge: November 03, 2024 Attending Provider at Admission: Alfred Hare MD Attending Provider at Discharge: Chuck Cardozo Primary Care Provider: Kathrin Zuniga MD Diagnoses at Discharge Discharge Diagnosis (1) Hypotension: Status: Acute (2) Dyspnea: Status: Acute (3) Ischemic cardiomyopathy: Status: Acute (4) Chronic kidney disease: Status: Chronic (5) Cardiac arrhythmia: Status: Acute Reason for Visit Reason for Visit: SOB Hospital Course Hospital Course Pleasant 83-year-old gentleman with history of ischemic cardiomyopathy, ejection fraction 40%, normally follows with Dr. Patel, was brought into the hospital due to shortness of breath, oxygen level was 82%, as well as hypotensive blood pressure 90/53. He received a fluid bolus, initially received an antibiotic in ER which was not continued with low suspicion of pneumonia, with finding of interstitial edema, small pleural effusions. He received support with norepinephrine, his home antihypertensives were held. Renal function remained stable. His blood pressure improved and he weaned off pressor. 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 Discussed with him and family and as per discussion he is asked to continue blood pressure monitoring at home 2-3 times a day, avoid high blood pressures as well as avoid hypotension. For now his antihypertensives are all held, he with monitoring he may gradually resume them if blood pressures are rising above target starting with carvedilol, then lisinopril, then spironolactone, and will Lasix is changed to as needed only to avoid dehydration as he currently appears compensated with regards to volume status. He otherwise reports he is feeling well, denies chest pain or pressure. No shortness of breath or other discomfort. He is aware to avoid stressful situations or extraneous activity, maintaining light activity, knows to seek medical attention case worsening or new concerning symptoms and will follow-up with his sawmill equipment operator and primary provider. He request to be discharged without any delay. Discussed with him and family obtaining home oxygen evaluation prior to discharge. He is doing well on room air at rest, but discussed need to assess exertional requirement. Physical Exam Narrative: Accompanied by family Const: COMMON NORMALS: patient oriented x3 and alert GENERAL APPEARANCE: cooperative ORIENTATION/CONSCIOUSNESS: Yes awake HENMT: COMMON NORMALS: oropharynx normal Neck/C-Spine: COMMON NORMALS: no JVD Resp: COMMON NORMALS: normal respiratory effort and clear to auscultation bilaterally AUSCULTATION: clear to auscultation bilaterally Cardio: COMMON NORMALS: no JVD, regular rhythm, S1 normal heart sound present, S2 normal heart sound present and No murmurs present (Cardio) RHYTHM: regular rhythm HEART SOUNDS: S1 normal heart sound present and S2 normal heart sound present GI: COMMON NORMALS: Normal to inspection, nondistended, normoactive bowel sounds present, Soft to palpation and non-tender PALPATION: Yes Soft to palpation Extremity: COMMON NORMALS: no joint enlargement and no pedal edema Neuro: COMMON NORMALS: patient oriented x3 and moves all extremities SENSORIUM/ORIENTATION: Yes alert Skin: COMMON NORMALS: no rashes or lesions noted GENERAL SKIN EXAM: no rashes or lesions noted Discharge Data Studies Completed and Pending Completed Studies During Hospitalization Category Date Time Status CT chest wo con [id number] Routine Cat Scan 11/02/24 09:29 Completed XR chest 1V portable [id number] Stat Exams 11/02/24 04:30 Completed US echo complete [CV. echo complete* [id number]] Stat Ultrasound 11/02/24 07:40 Completed Pending at discharge Category Date Time Status Blood Culture Stat Lab 11/02/24 06:57 Results Radiology Impressions Chest X-Ray 11/02/24 04:30 IMPRESSION: Bilateral lower lobe infiltrates concerning for developing pneumonia. Chest CT 11/02/24 09:29 IMPRESSION: 1. Small RIGHT greater than LEFT pleural effusions with compressive atelectasis in the lung bases. 2. Interstitial edema in the lower lobes bilaterally 3. Cardiomegaly. 4. Biconcave compression fracture T3 with diffuse sclerosis loss approximately 30% vertebral body height. This is probably chronic but recommend correlation for upper back pain. 5. Cholelithiasis. Laboratory Results WBC 7.11 10^3/uL (3.29-11.43) 11/03/24 03:41 RBC 3.82 10^6/uL (3.85-5.65) L 11/03/24 03:41 Hgb 11.70 g/dL (11.27-16.99) 11/03/24 03:41 Hct 35.7 % (37-53) L 11/03/24 03:41 MCV 93.5 fl (82-101) 11/03/24 03:41 MCH 30.6 pg (27-33) 11/03/24 03:41 MCHC 32.8 g/dL (30-55) 11/03/24 03:41 RDW 13.8 % (12.1-15.1) 11/03/24 03:41 Plt Count 175 10^3/cmm (157-399) 11/03/24 03:41 MPV 10.2 fL (7.4-10.4) 11/03/24 03:41 Neut % (Auto) 65.9 % 11/03/24 03:41 Lymph % (Auto) 19.8 % 11/03/24 03:41 [place] % (Auto) 10.7 % 11/03/24 03:41 Eos % (Auto) 2.4 % 11/03/24 03:41 Baso % (Auto) 0.8 % 11/03/24 03:41 Neut # (Auto) 4.68 10^3/uL (1.8-7.7) 11/03/24 03:41 Lymph # (Auto) 1.4 10^3/uL (0.8-4.8) 11/03/24 03:41 [place] # (Auto) 0.8 10^3/uL (0.2-0.9) 11/03/24 03:41 Eos # (Auto) 0.2 10^3/uL (0.0-0.8) 11/03/24 03:41 Baso # (Auto) 0.1 10^3/uL (0.0-0.1) 11/03/24 03:41 Nucleated RBC % (auto) 0 % 11/03/24 03:41 Nucleated RBCs # 0.0 /100WBC 11/03/24 03:41 PT 25.40 SECONDS (12.1-14.9) H 11/03/24 03:41 INR 2.22 (0.8-1.2) H 11/03/24 03:41 APTT 40.7 SECONDS (23.9-36.7) H 11/02/24 04:18 Sodium 141 mmol/L (136-145) 11/03/24 03:41 Potassium 3.7 mmol/L (3.5-5.1) 11/03/24 03:41 Chloride 103 mmol/L (98-107) 11/03/24 03:41 Carbon Dioxide 27 mmol/L (22-29) 11/03/24 03:41 Anion Gap 14.7 (5-19) 11/03/24 03:41 BUN 23 mg/dL (8-23) 11/03/24 03:41 Creatinine 1.4 mg/dL (0.7-1.2) H 11/03/24 03:41 GFR Calculation Not Reportable 11/03/24 03:41 Glucose 133 mg/dL (65-115) H 11/03/24 03:41 Calculated Osmolality 298 mOsm/kg (285-295) H 11/03/24 03:41 Lactic Acid 2.7 mmol/L (0.5-2.2) H 11/02/24 04:18 Lactic Acid (Sepsis) 1.9 mmol/L (0.5-2.2) 11/02/24 06:57 Calcium 9.1 mg/dL (8.5-10.5) 11/03/24 03:41 Magnesium 1.9 mg/dL (1.7-2.3) 11/03/24 03:41 Total Bilirubin 0.6 mg/dL (0.15-1.2) 11/03/24 03:41 AST 11 U/L (0-40) 11/03/24 03:41 ALT 13 U/L (0-41) 11/03/24 03:41 Alkaline Phosphatase 84 U/L (40-130) 11/03/24 03:41 Troponin T Baseline 38 ng/L (0-15) H 11/02/24 04:18 Troponin T 120 Minute 36.90 ng/L (0-15) H 11/02/24 06:57 Delta Troponin T -1.10 ABS# (0-10) L 11/02/24 06:57 C-Reactive Protein 40.1 mg/L (0.0-4.9) H 11/02/24 06:57 NT-Pro-B Natriuret Pep 3720 pg/mL (0-450) H 11/02/24 04:18 Total Protein 6.0 g/dL (6.6-8.7) L 11/03/24 03:41 Albumin 3.7 g/dL (3.5-5.2) 11/03/24 03:41 Globulin 2.3 g/dL (1.3-4.6) 11/03/24 03:41 Procalcitonin 0.07 ng/mL (0-0.5) 11/02/24 06:57 TSH 2.68 uIU/mL (0.27-4.20) 11/02/24 04:18 Urine Color Yellow (Yellow) 11/02/24 09:02 Urine Appearance Clear (CLEAR) 11/02/24 09:02 Urine pH 5.5 (5-7) 11/02/24 09:02 Ur Specific [place] 1.014 (1.005-1.030) 11/02/24 09:02 Urine Protein Negative (Negative) 11/02/24 09:02 Urine Glucose (UA) Negative (Normal) 11/02/24 09:02 Urine Ketones Negative (Negative) 11/02/24 09:02 Urine Blood Negative (Negative) 11/02/24 09:02 Urine Nitrate Negative (Negative) 11/02/24 09:02 Urine Bilirubin Negative (Negative) 11/02/24 09:02 Urine Urobilinogen 1.0 mg/dL (Negative) 11/02/24 09:02 Ur Leukocyte Esterase Negative (Negative) 11/02/24 09:02 Urine RBC 0-2 /hpf (0-2) 11/02/24 09:02 Urine WBC 0-5 /hpf (0-5) 11/02/24 09:02 Ur Squamous Epith Cells 0-5 /hpf (0-5) 11/02/24 09:02 Amorphous Sediment Not Reportable 11/02/24 09:02 Urine Bacteria None seen /hpf (NONE) 11/02/24 09:02 Hyaline Casts 9.07 /lpf 11/02/24 09:02 Digoxin 0.9 ng/mL (0.6-1.2) 11/02/24 06:52 Coronavirus (PCR) Negative (Negative) 11/02/24 04:18 Influenza A (PCR) Negative (Negative) 11/02/24 04:18 Influenza Type B (PCR) Negative (Negative) 11/02/24 04:18 RSV (PCR) Negative (Negative) 11/02/24 04:18 Vitals Last Vital Signs Temp 98.0 F 11/03/24 08:00 Pulse 72 11/03/24 08:00 Resp 15 11/03/24 08:00 BP 117/73 11/03/24 08:00 Pulse Ox 93 11/03/24 08:00 O2 Del Method Nasal Cannula 11/03/24 08:00 O2 Flow Rate 2 11/02/24 10:09 Discharge Plan Discharge Patient Disposition: Home Condition: Stable Prescriptions: Continued atorvastatin 10 mg tablet 10 mg PO DAILY warfarin 5 mg tablet 5 mg PO DAILY mexiletine 150 mg capsule 150 mg PO BID digoxin 125 mcg (0.125 mg) tablet 1.25 mg PO DAILY Changed furosemide 40 mg tablet 40 mg PO QAM PRN (Reason: Edema) Qty: 1 0RF Rx Instructions: Changed to as needed only Discontinued carvedilol 12.5 mg tablet 12.5 mg PO BID lisinopril 5 mg tablet 5 mg PO DAILY spironolactone 25 mg tablet 25 mg PO DAILY Discharge Orders: Discharge Order (Routine); Ordered 11/03/24 Ordered By: Chuck Cardozo Referrals: Kathrin Zuniga MD [Primary Care Provider] - 4-7 days (We have notified your physician's clinic of the need for a follow-up appointment to be scheduled. If you have not heard from them within the next 2 business days, please call them directly. ) Hayder Patel MD [Referring] - 1 week (We have notified your physician's clinic of the need for a follow-up appointment to be scheduled. If you have not heard from them within the next 2 business days, please call them directly. 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 Avoid stress, or any activities that may cause overexertion or stress, please be mindful that driving may cause sudden stress. Avoid carrying heavy groceries, shoveling snow or any strenuous activity. Maintain light activity. As discussed also please monitor your blood pressures 2-3 times a day. Long- term try to stay close to target blood pressure 120/80, avoid blood pressures above 130/85. But also avoid hypotension, blood pressures below 90 top number or below 50 bottom number. For now please hold carvedilol, lisinopril and spironolactone. Consider resuming these medications one by one gradually if your blood pressure persistently starts rising above 120/80. Resume carvedilol first, then in a day or 2 if blood pressure still rising above the goal and without low blood pressure episodes, resume lisinopril, then similarly in another 1 to 2 days if blood pressure still rising, resume spironolactone. Call your sawmill equipment operator office in case of any questions about your blood pressure or weakened heart. For now also please change your diuretic (furosemide) to as needed in case of lower extremity edema or weight gain of more than 3 pounds in 2 days as dehydration may cause low blood pressure. Seek medical attention in case of any worsening or new concerning symptoms Discharge Attestations Time Spent in Discharge Care*: greater than 30 min Quality Metrics Clinical Quality Measures [ No reported AMI, CVA or VTE this stay] Coding Level of Care Code 60026 Total time (in minutes) for Discharge: 50 Diagnoses Hypotension I95.9 Dyspnea R06.00 Ischemic cardiomyopathy I25.5 Chronic kidney disease N18.9 Cardiac arrhythmia I49.9
--- NOTE | 2024-11-03 11:11 | PC.NURSE ---
Patient c/o all night and day of room being cold. Thermostat set at 86. Room is chilled. Patient provided with heated blankets throughout the night. Patient becoming more agitated as the day progresses. Patient is ready for discharge. Informed Dr Cardozo. Plan is for discharge to day.
--- NOTE | 2024-11-03 11:26 | PC.NURSE ---
Have discharge orders pending home o2 eval.
[2024-11-03 11:42] VITALS: O2SAT 96; O2SAT 97
== END 2024-11-03 11:50 | disposition home or self-care (01) | DRG 315 ==
LOC: ER 08:59 → ICU 09:02 → CSU 17:03
PROVIDERS: Emergency Medicine; Admitting Provider Internal Medicine; Emergency Provider Family Medicine; PCP Family Medicine; Visit Provider Internal Medicine
DX: I95.9 Hypotension, unspecified (principal); J90 Pleural effusion, not elsewhere classified; I25.5 Ischemic cardiomyopathy; I34.0 Nonrheumatic mitral (valve) insufficiency; Z79.01 Long term (current) use of anticoagulants; E78.5 Hyperlipidemia, unspecified; R06.00 Dyspnea, unspecified; N18.9 Chronic kidney disease, unspecified; I49.9 Cardiac arrhythmia, unspecified
CPT/HCPCS: 0241U; 36415; 71045; 71250; 80053; 80162; 81001; 83605; 83735; 83880; 84145; 84443; 84484; 85025; 85610; 85730; 86140; 87040; 93005; 93306; 94760; 96365; 96376; 99285; A9270; J1940; J2543; J7040